=== PATIENT | female | born 1940 | race Two or more races ===

== ENCOUNTER 2021-12-24 10:05 | Inpatient (IN) | payer MEDICARE, BC ==
[~2021-12-24] VITALS: Ht 172.7 cm; Wt 61.2 kg
[2021-12-24] MEDS ORDERED: VIT1CAPS44 PO (10:29)
[2021-12-24] MEDS ORDERED: SERT100T12 PO (10:29)
[2021-12-24] MEDS ORDERED: MEMA10TA56 PO (10:29)
[2021-12-24] MEDS ORDERED: DONE10TA44 PO (10:29)
[2021-12-24] MEDS ORDERED: ATOR10TA PO (10:29)
[2021-12-24] MEDS ORDERED: ACETAMINOPHEN 325 MG TABLET PO PRN (11:00)
[2021-12-24] MEDS ORDERED: MAGNESIUM HYDROXIDE 30 ML UDC PO PRN (11:00)
[2021-12-24] MEDS ORDERED: clonazePAM 0.5 MG TABLET PO PRN (11:00)
[2021-12-24] MEDS ORDERED: BLOOD SUGAR DIAGNOSTIC 1 EACH STRIP IN ONE (11:00)
[2021-12-24] MEDS ORDERED: MAG HYDROX/AL HYDROX/SIMETH 30 ML UDC PO PRN (11:00)
[2021-12-24 11:18] VITALS: BP 137/79
--- NOTE | 2021-12-24 11:43 | NUR ---
RN-CO: ADMITTED A 81 YEAR OLD FEMALE FROM [facility] AND WAS PLACED ON A 5150 HOLD FOR GD. PER HOLD PATIENT IS CONFUSED, WONDERING AND HAS POOR SAFETY AWARENESS. DR CAPELLAN WAS NOTIFIED OF THIS ADMISSION, GAVE ADMITTING ORDERS NOTED AND CARRIED OUT. UPON FACE TO FACE ADMISSION , NOTED SHE IS COOPERATIVE, ALERT TO NAME AND PLACE ONLY. SHE HAS APPROPRIATE AFFECT, WITH SOME ORGANIZATION OF THOUGHTS AND LITTLE DISHEVELED. SKIN WAS ASSESSED FOR SKIN ISSUES. ALL BELONGINGS WERE SCREENED FOR CONTRABAND AND SHE WAS ORIENTED TO THE UNIT. PATIENT'S RIGHT WERE DISCUSSED AND BOOKLET WAS GIVEN. DR MENDEZ MADE AWARE OF THIS ADMISSION. PLAN OF CARE INITIATED. WE WILL CONTINUE TO MONITOR FOR SAFETY AND ANTICIPATE HER NEEDS.
--- NOTE | 2021-12-24 13:44 | NUR ---
RN-CO:DR CAPELLAN AND DR SPENCE IS AWARE OF THIS ADMISSION. PATIENT IS RESTLESS AND CONFUSED, SHE NEEDS CONSTANT REDIRECTIONS. WE WILL CONTINUE TO MONITOR. PT IS NOT QUALIFIED FOR MRSA SWAB SINCE SHE CAME FROM HOME.
[2021-12-24 16:00] VITALS: BP 130/78
[2021-12-24] MEDS ORDERED: Medication Not On Formulary EA (Vit C/E/Zn/Coppr/Lutein/Zeaxan (Preservision Areds 2 Sof PO SCH (17:00)
[2021-12-24] MEDS: ATORVASTATIN 10 MG TABLET PO SCH (18:11)
--- NOTE | 2021-12-24 19:57 | NUR ---
GPS RN OPENING NOTES: RECEIVED PATIENT IN DAY ROOM SITTING IN VICTORINO CHAIR, AWAKE A/O X1. FLAT AFFECT, DISHEVELED, FORGETFUL, DISORIENTED, DISORGANIZED, CONFUSED. UNABLE TO STATE DAY, TIME OR PLACE. NO S/S OF DISTRESS. RESPIRATION EVEN AND UNLABORED WITH EQUAL RISE AND FALL OF THE CHEST, ON ROOM AIR. OFFERED FLUID AND SNACKS TOLERATED. WILL CONTINUE TO MONITOR Q15 FOR MOOD, SAFETY AND BEHAVIOR.
[2021-12-24 20:01] VITALS: BP 141/80
[2021-12-24] MEDS: TEMAZEPAM 7.5 MG CAPSULE PO PRN (21:36)
--- NOTE | 2021-12-24 21:40 | NUR ---
GPS RN NOTES: PATIENT REQUESTED FOR SLEEP MEDICATION. RESTORIL 7.5MG GIVEN PO AT 2135. WILL CONTINUE TO MONITOR. Addendum: 12/24/21 at 2143 by HAILEE GUPTA RN RESTORIL 15MG GIVEN.
--- NOTE | 2021-12-25 06:47 | NUR ---
GPS RN CLOSING NOTES: PATIENT IS CURRENTLY SLEEPING. PATIENT SLEPT 8HRS THIS SHIFT. NO S/S OF DISTRESS. RESPIRATION EVEN AND UNLABORED WITH EQUAL RISE AND FALL OF THE CHEST, ON ROOM AIR. ALL PATIENT CARE NEEDS HAVE BEEN MET ANTICIPATED. BED LOCKED AND IN LOWEST POSITION, SIDE RAILS UP X2 FOR SAFETY, BED ALARM WITHIN REACH. WILL CONTINUE TO MONITOR Q15 FOR SAFETY, MOOD AND BEHAVIOR AND ENDORSE TO AM SHIFT.
[2021-12-25 07:17] LABS: ALBUMIN 3.4 g/dL (3.4-5.0); BILIRUBIN,TOTAL 0.4 mg/dL (0.2-1.0); CALCIUM, SERUM 8.9 mg/dL (8.5-10.1); CREATININE 0.9 mg/dL (0.6-1.3); POTASSIUM 3.7 mmol/L (3.5-5.1); TOTAL PROTEIN, SERUM 6.2 g/dL (6.4-8.2)
[2021-12-25 07:21] LABS: CHOLESTEROL 198 mg/dL (<200); HDL CHOLESTEROL 80 mg/dL (40-60); LDL 91 mg/dL (0-99); TRIGLYCERIDES 82 mg/dL (30-150)
[2021-12-25 08:00] VITALS: BP 134/60
[2021-12-25] MEDS: MEMANTINE HCL 5 MG TABLET PO SCH (08:45)
[2021-12-25] MEDS: DONEPEZIL 5 MG TABLET PO SCH (08:45)
[2021-12-25] MEDS: SERTRALINE HCL 50 MG TABLET PO SCH (09:36)
--- NOTE | 2021-12-25 10:34 | NUR ---
RN NOTE- PT CONFUSED, SOMNOLENT THOUGH DOES AWAKEN AND INTERACT. PO INTAKE FAIR, MED COMPLIANT, DEPRESSED W FLAT AFFECT
--- NOTE | 2021-12-25 11:11 | NUR ---
RICK Initial Discharge Plan: Patient currently resides at [address] [place] [address] , [place] [address]; ([phone]) with her Robbie ([phone]) who takes care of pt. RICK will work with the MD, family, and pt to help coordinate appropriate discharge.
--- NOTE | 2021-12-25 11:11 | NUR ---
Treatment Plan: Pt refused to sign treatment plan and was confused.
--- NOTE | 2021-12-25 11:11 | NUR ---
RICK Clinical Note: Patient placed on a 5150 hold for GD. Pt has been wandering at home and has been confused. Patient currently resides at [address] [place] [address]; ([phone]) with her Robbie ([phone]) who takes care of pt.
--- NOTE | 2021-12-25 13:28 | NUR ---
RICK Family Contact: SW contacted pt's Robbie ([phone]) and discussed treatment/discharge plan.
[2021-12-25 16:00] VITALS: BP 150/88
[2021-12-25] MEDS: ATORVASTATIN 10 MG TABLET PO SCH (17:21)
[2021-12-25 20:04] VITALS: BP 155/76
[2021-12-25 20:12] VITALS: BP 155/76
[2021-12-25 21:30] VITALS: BP 144/88
[2021-12-25] MEDS: TEMAZEPAM 7.5 MG CAPSULE PO PRN (21:38)
--- NOTE | 2021-12-25 21:39 | NUR ---
RN NOTE: INSOMNIA PATIENT VERBALIZED INABILITY TO SLEEP AND WANTED TO TAKE MEDICINE FOR SLEEP. PER PATIENT REQUEST, PRN RESTORIL 15 MG PO ADMINISTERED. WILL CONTINUE TO MONITOR FOR SAFETY AND BEHAVIOR.
[2021-12-26 08:00] VITALS: BP 139/71
[2021-12-26] MEDS: DONEPEZIL 5 MG TABLET PO SCH (09:49)
[2021-12-26] MEDS: MEMANTINE HCL 5 MG TABLET PO SCH (09:49)
[2021-12-26] MEDS: SERTRALINE HCL 50 MG TABLET PO SCH (09:49)
[2021-12-26 16:00] VITALS: BP 144/56
[2021-12-26] MEDS: ATORVASTATIN 10 MG TABLET PO SCH (18:17)
--- NOTE | 2021-12-26 19:40 | NUR ---
GPS RN OPENING NOTES: RECEIVED PATIENT AWAKE, A/O X1. FLAT AFFECT, DISHEVELED, FORGETFUL, DISORIENTED, DISORGANIZED, CONFUSED, WANDERING INTO OTHER ROOMS. REDIRECTABLE. NO S/S OF DISTRESS. RESPIRATION EVEN AND UNLABORED WITH EQUAL RISE AND FALL OF THE CHEST, ON ROOM AIR. OFFERED FLUID AND SNACKS TOLERATED. WILL CONTINUE TO MONITOR Q15 FOR MOOD, SAFETY AND BEHAVIOR.
[2021-12-26 20:23] VITALS: BP 153/83
[2021-12-26] MEDS: TEMAZEPAM 7.5 MG CAPSULE PO PRN (21:37)
--- NOTE | 2021-12-26 21:39 | NUR ---
GPS RN NOTES: RESTORIL 7.5MG 2CAPS GIVEN PO AT 2136. WILL CONTINUE TO MONITOR.
[2021-12-27 08:00] VITALS: BP 125/73
[2021-12-27] MEDS: DONEPEZIL 5 MG TABLET PO SCH (09:08)
[2021-12-27] MEDS: SERTRALINE HCL 50 MG TABLET PO SCH (09:08)
[2021-12-27] MEDS: MEMANTINE HCL 5 MG TABLET PO SCH (09:08)
--- NOTE | 2021-12-27 10:22 | NUR ---
Court Notification: SW contacted pt's Robbie ([phone]) to notify of pt's 8697 hearing. RICK unable to reach at this time.
--- NOTE | 2021-12-27 13:27 | NUR ---
Court Hearing: Patient's court hearing for 5150 was today and it was upheld for GD.
[2021-12-27 16:00] VITALS: BP 129/70
[2021-12-27] MEDS: ATORVASTATIN 10 MG TABLET PO SCH (17:19)
--- NOTE | 2021-12-27 19:15 | NUR ---
GPS RN NOTES RECEIVED PATIENT LYING DOWN IN BED BUT AWAKE, ALERT AND ORIENTED X1. NO S/SX OF ACUTE DISTRESS NOTED. PATIENT REMAINS CONFUSED, DISORGANIZED, WITHDRAWN, NO INTERACTION WITH OTHER PATIENTS. ENCOURAGED PT TO COME OUT FROM HER ROOM AND TO BE INVOLVED WITH UNIT MILIEU. SAFETY PRECAUTIONS IN PLACE. WILL CONTINUE TO MONITOR Q15MIN ROUNDS FOR SAFETY AND BEHAVIOR.
[2021-12-27 20:00] VITALS: BP 125/71
[2021-12-28 08:00] VITALS: BP 131/70
[2021-12-28] MEDS: DONEPEZIL 5 MG TABLET PO SCH (08:57)
[2021-12-28] MEDS: SERTRALINE HCL 50 MG TABLET PO SCH (08:57)
[2021-12-28] MEDS: MEMANTINE HCL 5 MG TABLET PO SCH (08:57)
[2021-12-28 16:00] VITALS: BP 142/63
[2021-12-28] MEDS: ATORVASTATIN 10 MG TABLET PO SCH (17:37)
--- NOTE | 2021-12-28 18:45 | NUR ---
RN-NOTES PATIENT IN THE ROOM A/O X1 ,NO ACUTE DISTRESS NOTED. NEEDS FREQUENT REDIRECTIONS AND INSTRUCTIONS.AMBULATING IN THE UNIT WITH WALKER. ALL NEEDS ATTENDED AND ANTICIPATED.WILL CONT. MONITORING FOR SAFETY AND BEHAVIOR. WILL ENDORSE TO INCOMING NURSE FOR CONTINUITY OF CARE.
--- NOTE | 2021-12-28 19:50 | NUR ---
GPS RN OPENING NOTES; RECEIVED PATIENT IN BED SLEEPING BUT EASY TO AROUSED.ON ROOM AIR RAFAEL WELL NO SIGN SOB/DISTRESS NOTED.SAFETY MEASURED IN PLACED.BED LOCKED AND LOWEST POSITION.CALL LIGHT WITHIN REACH.WILL CONTINUE TO MONITOR Q15 FOR MOOD, SAFETY AND BEHAVIOR.
[2021-12-28 20:00] VITALS: BP 154/85
[2021-12-29 08:00] VITALS: BP 145/94
[2021-12-29] MEDS: DONEPEZIL 5 MG TABLET PO SCH (08:13)
[2021-12-29] MEDS: MEMANTINE HCL 5 MG TABLET PO SCH (08:13)
[2021-12-29] MEDS: SERTRALINE HCL 50 MG TABLET PO SCH (08:13)
[2021-12-29 16:06] VITALS: BP 134/67
[2021-12-29] MEDS: ATORVASTATIN 10 MG TABLET PO SCH (17:20)
--- NOTE | 2021-12-29 17:54 | NUR ---
RN-NOTES PATIENT IS VISIBLE IN THE UNIT A/O X1 ,NO ACUTE DISTRESS NOTED. NOTED WITH EPISODE OF WANDERING TO OTHER ROOMS. NEEDS FREQUENT REDIRECTIONS AND INSTRUCTIONS.AMBULATING IN THE UNIT . ALL NEEDS ATTENDED AND ANTICIPATED.WILL CONT. MONITORING FOR SAFETY AND BEHAVIOR. WILL ENDORSE TO INCOMING NURSE FOR CONTINUITY OF CARE.
[2021-12-29 20:00] VITALS: BP 144/90
[2021-12-29] MEDS: TEMAZEPAM 7.5 MG CAPSULE PO PRN (22:22)
--- NOTE | 2021-12-29 22:26 | NUR ---
GPS RN NOTE: INSOMNIA PATIENT VERBALIZED INABILITY TO SLEEP AND WANTED TO TAKE SLEEPING MEDICINE. PRN RESTORIL 15 MG PO ADMINISTERED. WILL CONTINUE TO MONITOR.
[2021-12-30 08:00] VITALS: BP 112/60
[2021-12-30] MEDS: DONEPEZIL 5 MG TABLET PO SCH (08:12)
[2021-12-30] MEDS: SERTRALINE HCL 50 MG TABLET PO SCH (08:12)
[2021-12-30] MEDS: MEMANTINE HCL 5 MG TABLET PO SCH (08:12)
[2021-12-30 16:00] VITALS: BP 128/74
[2021-12-30] MEDS: ATORVASTATIN 10 MG TABLET PO SCH (17:08)
--- NOTE | 2021-12-30 17:17 | NUR ---
RN-NOTES PATIENT IS VISIBLE IN THE UNIT A/O X1. AMBULATORY STEADY GAIT. NO ACUTE DISTRESS NOTED. NOTED WITH EPISODE OF WANDERING TO OTHER ROOMS. NEEDS FREQUENT REDIRECTIONS AND INSTRUCTIONS.PATIENT CALM AND COOPERATIVE WITH THE STAFF AND CARE. ALL NEEDS ATTENDED AND ANTICIPATED.WILL CONT. MONITORING FOR SAFETY AND BEHAVIOR. WILL ENDORSE TO INCOMING NURSE FOR CONTINUITY OF CARE.
[2021-12-30 20:20] VITALS: BP 132/66
[2021-12-30 20:23] VITALS: BP 132/66
[2021-12-30] MEDS: TEMAZEPAM 7.5 MG CAPSULE PO PRN (21:27)
--- NOTE | 2021-12-30 21:29 | NUR ---
GPS RN NOTE: INSOMNIA PATIENT IS UNABLE TO SLEEP, WANDERS TO OTHER PATIENT'S ROOMS. PRN RESTORIL 15 MG PO ADMINISTERED. WILL CONTINUE TO MONITOR.
[2021-12-31] MEDS: DONEPEZIL 5 MG TABLET PO SCH (08:20)
[2021-12-31] MEDS: SERTRALINE HCL 50 MG TABLET PO SCH (08:20)
[2021-12-31] MEDS: MEMANTINE HCL 5 MG TABLET PO SCH (08:20)
--- NOTE | 2021-12-31 13:02 | NUR ---
RN-CO: PATIENT IS WANDERING IN THE HALLWAYS, OPENING DOORS, CONFUSED AND DISORGANIZED. HOWEVER, SHE IS REDIRECTABLE AND PLEASANT. SHE NEEDS CONSTANT REDIRECTIONS.
[2021-12-31 16:00] VITALS: BP 124/65
[2021-12-31] MEDS: ATORVASTATIN 10 MG TABLET PO SCH (17:08)
--- NOTE | 2021-12-31 19:40 | NUR ---
GPS RN OPENING NOTES: RECEIVED PATIENT WATCHING TV IN DAY ROOM, AWAKE, A/O X1. FLAT AFFECT, DISHEVELED, FORGETFUL, DISORIENTED, DISORGANIZED, CONFUSED, UNABLE TO GIVE APPROPRIATE ANSWERS TO QUESTIONS, COOPERATIVE. NO S/S OF DISTRESS. RESPIRATION EVEN AND UNLABORED WITH EQUAL RISE AND FALL OF THE CHEST, ON ROOM AIR. OFFERED FLUID AND SNACKS TOLERATED. WILL CONTINUE TO MONITOR Q15 FOR MOOD, SAFETY AND BEHAVIOR.
[2021-12-31 19:49] VITALS: BP 115/64
[2021-12-31] MEDS: TEMAZEPAM 7.5 MG CAPSULE PO PRN (21:35)
--- NOTE | 2021-12-31 21:38 | NUR ---
GPS RN NOTES: RESTORIL 7.5MG 2CAPS GIVEN PO AT 2135 D/T INSOMNIA. WILL CONTINUE TO MONITOR.
[2022-01-01 08:00] VITALS: BP 133/74
[2022-01-01] MEDS: SERTRALINE HCL 50 MG TABLET PO SCH (08:26)
[2022-01-01] MEDS: MEMANTINE HCL 5 MG TABLET PO SCH (08:27)
[2022-01-01] MEDS: DONEPEZIL 5 MG TABLET PO SCH (08:27)
[2022-01-01 16:00] VITALS: BP 150/79
[2022-01-01] MEDS: ATORVASTATIN 10 MG TABLET PO SCH (17:30)
--- NOTE | 2022-01-01 17:31 | NUR ---
ZEYNEPCO: MOM GIVEN FOR C/O CONSTIPATION.
--- NOTE | 2022-01-01 17:33 | NUR ---
RN-CO: PT IS PLEASANTLY CONFUSED, WANDERING FROM ROOM TO ROOM BUT REDIRECTABLE. SHE IS EATING FAIRLY ABOUT 75%. SHE IS COMPLIANT WITH MEDICATIONS AND CARE. SHE NEEDS MINIMAL TO MODERATE ASSISTANCE WITH ADL.
--- NOTE | 2022-01-01 19:42 | NUR ---
GPS RN OPENING NOTES: RECEIVED PATIENT IN ROOM WITH A VISITING FAMILY MEMBER, AWAKE, A/O X1. FLAT AFFECT, DISHEVELED, FORGETFUL, DISORIENTED, DISORGANIZED, CONFUSED, COOPERATIVE. NO S/S OF DISTRESS. RESPIRATION EVEN AND UNLABORED WITH EQUAL RISE AND FALL OF THE CHEST, ON ROOM AIR. WILL CONTINUE TO MONITOR Q15 FOR MOOD, SAFETY AND BEHAVIOR.
[2022-01-01 20:07] VITALS: BP 145/82
[2022-01-01] MEDS: TEMAZEPAM 7.5 MG CAPSULE PO PRN (21:30)
--- NOTE | 2022-01-01 21:33 | NUR ---
GPS RN NOTES: RESTORIL 7.5MG 2CAPS/15 GIVEN PO AT 2130 D/T INSOMNIA. WILL CONTINUE TO MONITOR.
[2022-01-02 08:00] VITALS: BP 131/76
[2022-01-02] MEDS: MEMANTINE HCL 5 MG TABLET PO SCH (09:15)
[2022-01-02] MEDS: DONEPEZIL 5 MG TABLET PO SCH (09:15)
[2022-01-02] MEDS: SERTRALINE HCL 50 MG TABLET PO SCH (09:15)
[2022-01-02 16:05] VITALS: BP 147/98
[2022-01-02] MEDS: ATORVASTATIN 10 MG TABLET PO SCH (17:44)
--- NOTE | 2022-01-02 19:44 | NUR ---
GPS RN OPENING NOTES: RECEIVED PATIENT LAYING IN BED, AWAKE A/O X1-2. APPEARS DEPRESSED, FLAT AFFECT, PASSIVE, WITHDRAWN, DISORGANIZED, DISORIENTED, COOPERATIVE. ENCOURAGED TO VERBALIZE FEELINGS. DENIES SI, HI AND PAIN AT THIS TIME. NO S/S OF DISTRESS. RESPIRATION EVEN AND UNLABORED WITH EQUAL RISE AND FALL OF THE CHEST, ON ROOM AIR. OFFERED FLUID AND SNACKS TOLERATED. BED IN LOWEST POSITION AND LOCKED, SIDE RAILS UP X2 FOR SAFETY. WILL CONTINUE TO MONITOR Q15 FOR MOOD, SAFETY AND BEHAVIOR.
--- NOTE | 2022-01-03 06:52 | NUR ---
GPS RN CLOSING NOTES: PATIENT IS CURRENTLY SLEEPING IN BED. PATIENT SLEPT 9HRS THIS SHIFT. NO S/S OF DISTRESS. RESPIRATION EVEN AND UNLABORED WITH EQUAL RISE AND FALL OF THE CHEST, ON ROOM AIR. ALL PATIENT CARE NEEDS HAVE BEEN MET ANTICIPATED. BED LOCKED AND IN LOWEST POSITION, SIDE RAILS UP X2 FOR SAFETY, BED ALARM WITHIN REACH. WILL CONTINUE TO MONITOR Q15 FOR SAFETY, MOOD AND BEHAVIOR AND ENDORSE TO AM SHIFT.
[2022-01-03 08:00] VITALS: BP 140/77
[2022-01-03] MEDS: MEMANTINE HCL 5 MG TABLET PO SCH (08:25)
[2022-01-03] MEDS: SERTRALINE HCL 50 MG TABLET PO SCH (08:29)
[2022-01-03] MEDS: DONEPEZIL 5 MG TABLET PO SCH (08:29)
[2022-01-03 16:00] VITALS: BP 138/65
[2022-01-03] MEDS: ATORVASTATIN 10 MG TABLET PO SCH (18:23)
[2022-01-03 20:00] VITALS: BP 138/75
[2022-01-03 20:03] VITALS: BP 138/75
[2022-01-03] MEDS: TEMAZEPAM 7.5 MG CAPSULE PO PRN (22:07)
--- NOTE | 2022-01-04 07:58 | NUR ---
Fidel Shields NP of Dr. Russell gave an order to D/C hold and D/C home and to follow up with the lsw Dr. Dakota Hollins located at [address] [facility], [place] [address] with the tel# of [phone]. [employer] will monitor and provide pt's. psychotropic medications. Pt. an appointment on January 23 @ 4:30PM. Pt. is for discharge with Home Health Care. Pt. will be picket labor union by the Robbie. Pt. without distress, denies suicidal and homicidal. Belonings ready and discharge papers ready. Addendum: 01/04/22 at 0951 by KEEGAN JAVIER RN Fidel CRENSHAW provided a prescription upon discharge.
[2022-01-04 08:00] VITALS: BP 135/87
--- NOTE | 2022-01-04 08:06 | NUR ---
SW Discharge Note: Patient will be discharged back home located at [address] , [place] [address]; ([phone]). Patients Robbie ([phone]) will milk pickup driver pt at 10AM. Patient is alert and oriented x2. Patient denies suicidal or homicidal ideation. Patient denies visual/auditory hallucinations. Patient is happy to be going back home. Patient will follow up with ([employer]) Dr. Dakota Hollins located [id number] [facility] [address], [place] [address]; who will monitor and provide patients psychotropic medications on January 23 at 4:30PM. SW sent patient up with [facility] was arranged (P:[phone], F: [phone]) for medication management, physical therapy, and nursing follow ups they will follow up with pt. Patient presents with euthymic mood and congruent affect.
[2022-01-04] MEDS: SERTRALINE HCL 50 MG TABLET PO SCH (08:25)
[2022-01-04] MEDS: DONEPEZIL 5 MG TABLET PO SCH (08:25)
[2022-01-04] MEDS: MEMANTINE HCL 5 MG TABLET PO SCH (08:25)
--- NOTE | 2022-01-04 09:52 | NUR ---
Dr. Florian made aware of the discharge and provided a prescriptions. Addendum: 01/04/22 at 1033 by KEEGAN JAVIER RN Pt. signed the discharge papers.
--- NOTE | 2022-01-04 10:15 | NUR ---
Pt. left the unit with belongings and wheeled by staff to the lobby via a wheelchair. Left without distress and no agitation noted. V/S taken: BP 138/72, PR83, RR 18 , oxygen sat 96% and temp 97.6. Pt. being picked up by the Robbie and was instructed on meds to continue at home and advised to make a follow up with the pediatric physical therapy assistant and verbalizes understanding. instructed that pt. is with Home Health Care.
== END 2022-01-04 10:10 | disposition home or self-care (01) | DRG 881 ==
LOC: GPS 10:05
PROVIDERS: ADMIT Nurse Practitioner Psychiatric/Mental Health; ATTEND Internal Medicine
DX: F32.9 Major depressive disorder, single episode, unspecified (principal); F03.91 Unspecified dementia, unspecified severity, with behavioral disturbance; F29 Unspecified psychosis not due to a substance or known physiological condition; R62.7 Adult failure to thrive; F03.90 Unspecified dementia, unspecified severity, without behavioral disturbance, psychotic disturbance, mood disturbance, and anxiety; F41.9 Anxiety disorder, unspecified; Z79.899 Other long term (current) drug therapy; E78.5 Hyperlipidemia, unspecified; R73.03 Prediabetes; Z73.6 Limitation of activities due to disability
CPT/HCPCS: 36415; 80053-TC; 80061-TC